=== PATIENT | female | born 1990 | race Caucasian/White ===

== ENCOUNTER → 2018-12-07 | Outpatient (REF) ==
[~2018-12-07] MED LIST: AMOX-559 PO; AZIT-1 PO; AZIT-9 PO; BENZ200C15 PO; CIPR-214 PO; FLU150 PO; FLUT16SP19 NS; GUAI120L3 PO; HYDR-3250 PO; METH18ERPT PO; METH5TAB85 PO
[2018-12-07 08:54] LABS: LDL CHOLESTEROL 88 mg/dl
== END ==
DX: Z02.9 Encounter for administrative examinations, unspecified (principal)

== ENCOUNTER → 2019-01-28 | Outpatient (CLI) | payer OTHER | LOC: LAB 14:59 | PROVIDERS: ATTEND Nurse Practitioner Primary Care | DX: R17 Unspecified jaundice (principal) | CPT/HCPCS: 36415; 82040; 82247; 82248; 82310; 82374; 82435; 82565; 82947; 83010; 83615; 84075; 84132; 84155; 84295; 84450; 84460; 84520 ==